=== PATIENT | female | born 1950 | race Two or more races ===

== ENCOUNTER 2021-01-17 19:49 | Emergency (ER) | payer OTHER ==
[~2021-01-17] VITALS: Ht 152.4 cm; Wt 72.6 kg
[2021-01-17 21:32] VITALS: BP 139/90
--- NOTE | 2021-01-17 21:32 | NUR ---
Patient discharged to home in stable condition with family taking patient home. Written and verbal after care instructions given. Patient verbalizes understanding of instructions. Stressed follow up or return to ER for worsening s/s.
== END 2021-01-17 21:33 | disposition home or self-care (01) ==
LOC: ER 19:49
DX: H11.32 Conjunctival hemorrhage, left eye (principal); I16.0 Hypertensive urgency; I10 Essential (primary) hypertension; E11.9 Type 2 diabetes mellitus without complications; E78.5 Hyperlipidemia, unspecified; H40.9 Unspecified glaucoma; Z98.49 Cataract extraction status, unspecified eye; Z79.82 Long term (current) use of aspirin
CPT/HCPCS: A4663